=== PATIENT | female | born 1960 | race Caucasian/White ===

== ENCOUNTER → 2017-09-09 | Outpatient (CLI) | payer BC ==
--- NOTE | 2017-09-12 11:48 | MM ---
Reason for exam: screening (asymptomatic). Last mammogram was performed 2 years and 7 months ago. History: Took hormonal contraceptives for 2 years. Taking estrogen for 1 year. Taking progesterone. Physical Findings: A clinical breast exam by your physician is recommended on an annual basis and results should be correlated with mammographic findings. MG Screening Mammo w CAD Bilateral CC and MLO view(s) were taken. Prior study comparison: January 28, 2015, bilateral MG 3d screening mammo w/cad. June 21, 2011, [facility] DIGITAL RIGHT MAMMOGRAM w/CAD. The breast tissue is heterogeneously dense. This may lower the sensitivity of mammography. There is no discrete abnormality. No significant changes when compared with prior studies. ASSESSMENT: Negative, BI-RAD 1 RECOMMENDATION: Routine screening mammogram of both breasts in 1 year.
== END | disposition home or self-care (01) ==
LOC: RADMAMWWP 13:34
PROVIDERS: ATTEND Family Medicine
DX: Z12.31 Encounter for screening mammogram for malignant neoplasm of breast (principal)
CPT/HCPCS: 77067

== ENCOUNTER 2019-09-28 18:36 | Emergency (ER) | payer BC ==
[2019-09-28 18:42] VITALS: TEMP 97.8
--- NOTE | 2019-09-28 19:29 | ED ---
Upper Extremity HPI - General Chief Complaint: Extremity Injury, Upper Stated Complaint: Rt wrist injury Time Seen by Provider: 09/28/19 18:54 Source: patient Mode of arrival: ambulatory Limitations: no limitations - History of Present Illness Initial Comments: 58 year-old female patient presents to the emergency department for evaluation of right wrist pain. Patient states about an hour ago she was skateboarding when she fell off backwards and injured the wrist. States she did reach her hand behind her to try to catch herself. Patient is unsure she had her head but denies any loss of consciousness. She denies any neck or back pain. She does not take blood thinning medications. She does believe the right wrist is broken, denies previous injury to this wrist. She is also reporting some discomfort to the right elbow. Tenderness is up-to-date in the last 5 years. Patient denies any headache, neck pain, back pain, chest pain, shortness of breath, dizziness, weakness, abdominal pain, nausea, vomiting, or difficulties with bowel movements or urination. - Related Data Previous Rx's Medication Instructions Recorded Ibuprofen [Motrin] 600 mg PO Q8HR PRN #30 tab 09/28/19 Allergies Allergy/AdvReac Type Severity Reaction Status Date / Time No Known Allergies Allergy Verified 09/28/19 18:42 Review of Systems ROS Statement: Those systems with pertinent positive or pertinent negative responses have been documented in the HPI. ROS Other: All systems not noted in ROS Statement are negative. Past Medical History Past Medical History: Hypertension Additional Past Medical History / Comment(s): chronic back pain History of Any Multi-Drug Resistant Organisms: None Reported Past Surgical History: Orthopedic Surgery, Tonsillectomy, Tubal Ligation Additional Past Surgical History / Comment(s): carpal tunnel, shoulder Past Psychological History: No Psychological Hx Reported Smoking Status: Current every day smoker Past Alcohol Use History: None Reported Past Drug Use History: None Reported General Exam Limitations: no limitations General appearance: alert, in no apparent distress, other (This is a well- developed, well-nourished adult female patient in no acute distress. Vital signs upon presentation are temperature 97.8F, pulse 91, respirations 18, blood pressure 97/61, pulse ox 100% on room air.) Eye exam: Present: normal appearance, PERRL, EOMI. Absent: scleral icterus, conjunctival injection, periorbital swelling Neck exam: Present: normal inspection, full ROM, other (Nontender, no step-off, no deformity to firm midline palpation of the posterior cervical spine. Full range of motion without pain or limitation.). Absent: tenderness, meningismus, lymphadenopathy Respiratory exam: Present: normal lung sounds bilaterally. Absent: respiratory distress, wheezes, rales, rhonchi, stridor Cardiovascular Exam: Present: regular rate, normal rhythm, normal heart sounds. Absent: systolic murmur, diastolic murmur, rubs, gallop, clicks GI/Abdominal exam: Present: soft, normal bowel sounds. Absent: distended, tenderness, guarding, rebound, rigid Extremities exam: Present: tenderness (Over the right distal radius and ulna), normal capillary refill, other (There is soft tissue swelling and deformity noted to the right wrist, there is superficial abrasion over the right elbow. Remainder of skin is pink, warm, dry. Cap refills less than 3 seconds. Radial pulses 2+ and equal bilaterally.). Absent: normal inspection, full ROM (Decreased range of motion to the right wrist due to increased pain with movement), pedal edema, joint swelling, calf tenderness Back exam: Present: normal inspection, other (Nontender, no step-off, no deformity to firm midline palpation of the thoracic and lumbar vertebrae. Full range of motion without pain or limitation.). Absent: vertebral tenderness Neurological exam: Present: alert, oriented X3, CN II-XII intact Psychiatric exam: Present: normal affect, normal mood Skin exam: Present: warm, dry, intact, normal color. Absent: rash Course Vital Signs 09/28/19 09/28/19 18:38 20:15 Temperature 97.8 F Pulse Rate 91 62 Respiratory 18 16 Rate Blood Pressure 97/61 116/76 O2 Sat by Pulse 100 100 Oximetry Procedures - Orthopedic Splinting/Casting Injury #1 Side: right Upper Extremity Injury Location: short arm, wrist Upper Extremity Immobilizer: posterior splint, Heath wrap Additional Comments: Neurovascular status intact after splint application. Skin to the fingers and hand is pink, warm, dry. Cap refills less than 3 seconds. Patient denies numbness or tingling. Medical Decision Making - Medical Decision Making 58-year-old female patient presents to the emergency department today for evaluation of right wrist pain and swelling after a fall. Physical examination did reveal mild deformity and soft tissue swelling surrounding the distal radius and ulna. X-rays were obtained and did reveal a mildly angulated distal radius fracture and ulnar styloid fracture. Patient was placed in a posterior OCL splint and will be discharged to follow-up with orthopedic specialty. She is instructed to call in the morning for an appointment. She does have [place] at home. I will send ibuprofen to the pharmacy. Return parameters were discussed in detail. She verbalizes understanding and agrees this plan. - Radiology Data Radiology results: report reviewed, image reviewed X-rays of the right elbow and right wrist were obtained. Report reviewed in its entirety. Impression by Dr. Black shows no acute osseous abnormality and elbow. The wrist shows a comminuted intra-articular fracture of the distal radial metaphysis and epiphysis with dorsal angulation. Intra-articular extension into the radial lunate joint. Additional mildly displaced fracture of the ulnar styloid process. Disposition Clinical Impression: Fracture of right radius and ulna Disposition: HOME SELF-CARE Condition: Good Instructions (If sedation given, give patient instructions): Arm Fracture in Adults (ED), Splint Care (ED) Additional Instructions: Keep the splint in place until follow-up with orthopedics, call in the morning for an appointment. Take medications as needed for pain control. Apply ice to the right wrist and keep the arm elevated. Return to the emergency department immediately for any new, worsening, or concerning symptoms. Prescriptions: Ibuprofen [Motrin] 600 mg PO Q8HR PRN #30 tab PRN Reason: Pain Is patient prescribed a controlled substance at d/c from ED?: No Referrals: Christopher Gutierrez MD [Primary Care Provider] - 1-2 days Alexander Solares MD [STAFF PHYSICIAN] - 1-2 days Time of Disposition: 19:56
--- NOTE | 2019-09-28 19:30 | XR ---
EXAMINATION TYPE: XR elbow complete 3 views RT, XR wrist complete 3 views RT DATE OF EXAM: 09/28/2019 COMPARISON: NONE HISTORY: 58-year-old female fall, injury, pain FINDINGS: Elbow: No elbow joint effusion. No acute fracture, subluxation, dislocation seen. Wrist: Comminuted intra-articular fracture of the distal radial metaphysis and epiphysis. There is dorsal an gulation and intra-articular extension into the radiolunate joint. Mildly displaced fracture of the u lnar styloid process is also demonstrated. IMPRESSION: 1. Elbow: No acute osseous abnormality seen. 2. Wrist: Comminuted intra-articular fracture of the distal radial metaphysis and epiphysis with dors al angulation. Intra-articular extension into the radiolunate joint. Additional mildly displaced frac ture of the ulnar styloid process.
[2019-09-28] MEDS ORDERED: KETOROLAC 30 MG/ML 1 ML VIAL IM STA (20:05)
[2019-09-28 20:16] VITALS: BP 116/76; PULSE 62; RESP 16
== END 2019-09-28 20:17 | disposition home or self-care (01) ==
LOC: EC 18:36
DX: S52.611A Displaced fracture of right ulna styloid process, initial encounter for closed fracture (principal); S52.571A Other intraarticular fracture of lower end of right radius, initial encounter for closed fracture; F17.200 Nicotine dependence, unspecified, uncomplicated; V00.131A Fall from skateboard, initial encounter; Y93.51 Activity, roller skating (inline) and skateboarding; Y92.89 Other specified places as the place of occurrence of the external cause
CPT/HCPCS: 96372; 29125; 99283; 73080; 73110; J1885